=== PATIENT | female | born 1965 | race Caucasian/White ===

== ENCOUNTER 2020-08-18 12:46 | Outpatient (CLI) | payer OTHER | END 2020-08-18 12:47 | disposition home or self-care (01) | LOC: CSHMAMMO 12:46 | PROVIDERS: ATTEND Nurse Practitioner Adult Health | DX: Z12.31 Encounter for screening mammogram for malignant neoplasm of breast (principal) | CPT/HCPCS: 77067 ==

== ENCOUNTER 2021-10-08 10:05 | Outpatient (CLI) | payer OTHER | END 2021-10-08 10:06 | disposition home or self-care (01) | LOC: CSHMAMMO 10:05 | PROVIDERS: ATTEND Family Medicine | DX: Z12.31 Encounter for screening mammogram for malignant neoplasm of breast (principal) | CPT/HCPCS: 77067 ==

== ENCOUNTER 2022-03-27 16:11 | Inpatient (IN) | payer OTHER ==
[2022-03-27] MEDS ORDERED: Ondansetron ODT 4 MG TAB PO PRN (17:06)
[2022-03-27] MEDS ORDERED: Ondansetron PF 4 MG/2 ML Vial IVP PRN (17:06)
[2022-03-27] MEDS ORDERED: Acetaminophen 650 MG Suppository PR PRN (17:06)
[2022-03-27] MEDS ORDERED: Bisacodyl 5 MG TAB PO PRN (17:06)
[2022-03-27] MEDS ORDERED: Senokot S 8.6-50 MG TAB PO PRN (17:06)
[2022-03-27] MEDS ORDERED: Acetaminophen 325 MG TAB PO PRN (17:06)
[2022-03-27 17:10] VITALS: BMI 21.9
[2022-03-27] MEDS ORDERED: FLU VACC QS2022-23(6MOS UP)/PF 60 MCG/0.5 ML SYRINGE IM ONE (17:30)
[2022-03-27] MEDS ORDERED: Enoxaparin Sodium 40 MG/0.4 ML SYRINGE SC SCH (17:45)
[2022-03-27] MEDS ORDERED: Mometasone/Formoterol 60 PUFF AER INH SCH (18:30)
[2022-03-27] MEDS: Nicotine 14 MG PATCH TD SCH (18:40)
[2022-03-27 20:04] LABS: Magnesium 2.1 mg/dL (1.6-2.6); Phosphorus 2.2 mg/dL (2.3-4.7)
[2022-03-27 20:24] LABS: HIV (1/2) Antibody/Antigen Non-Reactive (NonReactive); HIV 1/2 INDEX 0.23 S/CO (<1.00)
[2022-03-27] MEDS: Famotidine 20 MG TAB PO SCH (21:44)
[2022-03-27] MEDS: Mometasone/Formoterol 200/5 60 PUFF INH SCH (23:24)
[2022-03-28 05:21] LABS: #Monocytes 0.4 10x3/uL (0.0-1.1); %Basophils 0.1 % (0.0-2.0); %Lymphocytes 6.8 % (18.0-47.0); %Neutrophils 88.5 % (40.0-75.0); Hemoglobin 12.4 g/dL (12.0-15.5); Mean Corpuscular HGB CONC 31.1 g/dL (32.0-36.0); Mean Corpuscular Hemoglobin 26.4 pg (27.0-33.0); Mean Corpuscular Volume 84.9 fl (81.6-98.3); Mean Platelet Volume 9.7 fl (7.4-10.4); Platelet Count 258 10x3/uL (150-450); White Blood Cell (WBC) Count 10.2 10x3/uL (3.5-10.5)
[2022-03-28 07:32] LABS: Bilirubin Neg (Negative); Blood, Urine Negative (Negative); Clarity Clear (Clear); Glucose, Urine (Dipstick) 50 mg/dL (Negative); Ketone, Urine Negative (Negative); Leukocyte 25 (Negative); Nitrite Negative (Negative); Protein, Urine (Dipstick) Negative (Neg-Trace); Urobilinogen Normal mg/dL (Less than 2)
[2022-03-28 07:54] LABS: Legionella Urinary Ag Negative (Negative); Strep pneumo Urine Ag NEGATIVE (NEGATIVE)
[2022-03-28 08:05] LABS: Bacteria/HPF 1+ HPF (None Seen); Mucous/LPF 1+ LPF (<2+); RBC/HPF 0-3 HPF (0-3); WBC/HPF 0-3 HPF (0-3)
[2022-03-28] MEDS: Mometasone/Formoterol 200/5 60 PUFF INH SCH ×2 (08:05→18:55)
[2022-03-28] MEDS: Enoxaparin Sodium 40 MG/0.4 ML SYRINGE SC SCH (08:30)
[2022-03-28] MEDS: predniSONE 20 MG TAB PO SCH (08:30)
[2022-03-28] MEDS: Famotidine 20 MG TAB PO SCH ×2 (08:30→21:17)
[2022-03-28] MEDS ORDERED: cefTRIAXone\\ROCEPHIN 1 GM in Sodium Chloride 0.9% 100 ML IVPB SCH (14:00)
[2022-03-28] MEDS: Nicotine 14 MG PATCH TD SCH (17:16)
[2022-03-29 05:36] LABS: Hemoglobin 11.2 g/dL (12.0-15.5); Mean Corpuscular HGB CONC 30.9 g/dL (32.0-36.0); Mean Corpuscular Hemoglobin 26.5 pg (27.0-33.0); Mean Corpuscular Volume 85.6 fl (81.6-98.3); Mean Platelet Volume 9.6 fl (7.4-10.4); Platelet Count 290 10x3/uL (150-450); RBC Distribution Width 13.9 % (11.5-14.5); Red Blood Cell (RBC) Count 4.23 10x6/uL (3.90-5.03); White Blood Cell (WBC) Count 8.7 10x3/uL (3.5-10.5)
[2022-03-29 05:42] LABS: Anion Gap 10 mmol/L (10-20); BUN (Urea Nitrogen) 15 mg/dL (9.8-20.1); Calc. Creatinine Clearance 102 mL/min (70-130); Calcium 8.6 mg/dL (7.8-10.44); Carbon Dioxide 30 mmol/L (22-29); Chloride 106 mmol/L (98-107); Estimated GFR 110; Glucose 127 mg/dL (70-105); Potassium 4.3 mmol/L (3.5-5.1); Sodium 142 mmol/L (136-145)
[2022-03-29 06:15] LABS: MDiff Complete? YES; Platelet Morphology Comment Appears Adequate
[2022-03-29 06:17] LABS: Band 5 % (5-11); Lymphocytes 5 % (21-51); Metamyelocyte 1 % (0-0); Monocytes 7 % (0-10); Neutrophil 81 % (42-75); Reactive Lymphocytes 1 % (0-10)
[2022-03-29] MEDS: Mometasone/Formoterol 200/5 60 PUFF INH SCH (07:25)
[2022-03-29] MEDS: Famotidine 20 MG TAB PO SCH (08:47)
[2022-03-29] MEDS: predniSONE 20 MG TAB PO SCH (08:48)
[2022-03-29] MEDS: Enoxaparin Sodium 40 MG/0.4 ML SYRINGE SC SCH (08:49)
[2022-03-29 10:18] VITALS: BP 131/73; TEMP 98.2
== END 2022-03-29 10:17 | disposition home or self-care (01) | DRG 871 ==
LOC: CSHTELE 16:11
PROVIDERS: ADMIT Family Medicine; ATTEND Family Medicine
DX: A41.9 Sepsis, unspecified organism (principal); J18.9 Pneumonia, unspecified organism; J96.01 Acute respiratory failure with hypoxia; J44.1 Chronic obstructive pulmonary disease with (acute) exacerbation; J44.0 Chronic obstructive pulmonary disease with (acute) lower respiratory infection; R65.20 Severe sepsis without septic shock; M06.9 Rheumatoid arthritis, unspecified; B18.2 Chronic viral hepatitis C; F17.210 Nicotine dependence, cigarettes, uncomplicated; Z79.899 Other long term (current) drug therapy; Z79.52 Long term (current) use of systemic steroids; Z91.013 Allergy to seafood; Z80.1 Family history of malignant neoplasm of trachea, bronchus and lung
CPT/HCPCS: 36415; 80048; 81001; 83735; 84100; 85025; 87070; 87205; 87389; 87449; 87633; 87899; 94640; 94664; 94760; J0696; J1650; J1956; J3490; J7512; J7620

== ENCOUNTER 2022-04-17 09:12 | Inpatient (IN) | payer OTHER ==
[2022-04-17 09:49] LABS: ALV-art Gradient 496.875 mmHg (0-20); Actual Bicarbonate (HCO3a) 28.9 mEq/L (22-28); CO2 Tension 69.3 mmHg (35.0-45.0); Calcium, Ionized (arterial) 1.17 mmol/L (1.12-1.30); Carboxyhemoglobin (COHb) 0.5 gm% (0.0-3.0); Hemoglobin (Hb) 12.4 g/dL (12.0-16.0); O2 Tension (PaO2), arterial 129.5 mmHg (80.0-100.0); Potassium - ABG Lab 3.6 mmol/L (3.70-5.30); Puncture Site RRA; pH, Arterial 7.24 (7.35-7.45)
[2022-04-17] MEDS ORDERED: Senokot S 8.6-50 MG TAB PO PRN (10:13)
[2022-04-17] MEDS ORDERED: Ondansetron PF 4 MG/2 ML Vial IVP PRN (10:13)
[2022-04-17] MEDS ORDERED: Calcium Carbonate 500 MG ChewTAB PO PRN (10:13)
[2022-04-17] MEDS ORDERED: Acetaminophen 650 MG Suppository PR PRN (10:16)
[2022-04-17] MEDS ORDERED: Benzonatate 100 MG CAP PO PRN (10:16)
[2022-04-17] MEDS ORDERED: Acetaminophen 325 MG TAB PO PRN (10:16)
[2022-04-17] MEDS ORDERED: REMDESIVIR 200 MG in Sodium Chloride 0.9% 250 ML 210 ML IV SCH (10:30)
[2022-04-17] MEDS ORDERED: Sodium Chloride 0.9% 1,000 ML IV SCH (10:30)
[2022-04-17] MEDS ORDERED: Ventolin HFA Inhaler 60 PUFF INHALER INH PRN (10:32)
[2022-04-17] MEDS ORDERED: Dexamethasone 20 MG/5 ML VIAL SLOW IVP SCH (10:45)
[2022-04-17] MEDS: Nicotine 21 MG PATCH TD SCH (11:00)
[2022-04-17] MEDS: cefTRIAXone\\ROCEPHIN 1 GM in Sodium Chloride 0.9% 100 ML IVPB SCH (11:00)
[2022-04-17 11:18] LABS: ALT (SGPT) 19 U/L (8-55); AST (SGOT) 30 U/L (5-34); Albumin 3.5 g/dL (3.5-5.0); Alkaline Phosphatase 76 U/L (40-110); Bilirubin, Direct 0.2 mg/dL (0.1-0.3); Bilirubin, Total 0.3 mg/dL (0.2-1.2); Protein, Total 6.5 g/dL (6.0-8.3)
[2022-04-17] MEDS: Famotidine 20 MG TAB PO SCH (20:17)
[2022-04-17] MEDS: Doxycycline 100 MG in Sodium Chloride 0.9% 100 ML IVPB SCH (20:17)
[2022-04-17] MEDS: Dexamethasone 20 MG/5 ML VIAL SLOW IVP SCH (20:17)
[2022-04-18] MEDS ORDERED: Ventolin HFA Inhaler 60 PUFF INHALER ONE (00:29)
[2022-04-18] MEDS: Acetaminophen 325 MG TAB PO PRN ×3 (03:04→16:53)
[2022-04-18 04:07] LABS: Anion Gap 13 mmol/L (10-20); BUN (Urea Nitrogen) 15 mg/dL (9.8-20.1); Calc. Creatinine Clearance 0 mL/min (70-130); Calcium 8.7 mg/dL (7.8-10.44); Carbon Dioxide 22 mmol/L (22-29); Chloride 104 mmol/L (98-107); Estimated GFR 110; Glucose 138 mg/dL (70-105); Potassium 4.8 mmol/L (3.5-5.1); Sodium 134 mmol/L (136-145)
[2022-04-18 04:17] LABS: #Monocytes 0.3 10x3/uL (0.0-1.1); #Neutrophils 5.6 10x3/uL (1.5-8.4); %Lymphocytes 7.8 % (18.0-47.0); %Monocytes 4.4 % (0.0-10.0); %Neutrophils 87.3 % (40.0-75.0); Hemoglobin 11.9 g/dL (12.0-15.5); Mean Corpuscular HGB CONC 30.4 g/dL (32.0-36.0); Mean Corpuscular Hemoglobin 26.2 pg (27.0-33.0); Mean Corpuscular Volume 86.2 fl (81.6-98.3); Mean Platelet Volume 10.8 fl (7.4-10.4); Platelet Count 119 10x3/uL (150-450); RBC Distribution Width 15.2 % (11.5-14.5); Red Blood Cell (RBC) Count 4.55 10x6/uL (3.90-5.03); White Blood Cell (WBC) Count 6.4 10x3/uL (3.5-10.5)
[2022-04-18 04:19] LABS: Basophilic Stippling SLIGHT = 1-2 cells (100X) (None Seen); Platelet Morphology Comment Appears Decreased
[2022-04-18] MEDS: Dexamethasone 20 MG/5 ML VIAL SLOW IVP SCH ×2 (08:14→21:07)
[2022-04-18] MEDS: Cholecalciferol (Vitamin D3) 400 UNITS TAB PO SCH (08:14)
[2022-04-18] MEDS: Zinc Sulfate 220 MG CAP PO SCH (08:14)
[2022-04-18] MEDS: Enoxaparin Sodium 40 MG/0.4 ML SYRINGE SC SCH (08:14)
[2022-04-18] MEDS: Ascorbic Acid 500 mg Chewable Tablet PO SCH (08:15)
[2022-04-18] MEDS: Famotidine 20 MG TAB PO SCH ×2 (08:15→21:08)
[2022-04-18] MEDS: Doxycycline 100 MG in Sodium Chloride 0.9% 100 ML IVPB SCH ×2 (08:18→21:07)
[2022-04-18] MEDS: Oseltamivir 75 MG CAP PO SCH (09:32)
[2022-04-18] MEDS ORDERED: Iopamidol 300 61% 100 ML VIAL FS ONE (10:00)
[2022-04-18] MEDS ORDERED: REMDESIVIR 100 MG in Sodium Chloride 0.9% 250 ML 230 ML IV SCH (10:30)
[2022-04-18] MEDS: Nicotine 21 MG PATCH TD SCH (10:37)
[2022-04-18] MEDS: cefTRIAXone\\ROCEPHIN 1 GM in Sodium Chloride 0.9% 100 ML IVPB SCH (10:37)
[2022-04-18] MEDS: BARICITINIB 2 MG TAB PO SCH (12:56)
[2022-04-18] MEDS: Albuterol Sulfate 2.5 mg/3 ml Neb NEB PRN (18:57)
[2022-04-19] MEDS: Albuterol Sulfate 2.5 mg/3 ml Neb NEB PRN (00:07)
[2022-04-19 04:04] LABS: #Monocytes 0.2 10x3/uL (0.0-1.1); #Neutrophils 4.5 10x3/uL (1.5-8.4); %Basophils 0.2 % (0.0-2.0); %Lymphocytes 10.6 % (18.0-47.0); %Monocytes 3.2 % (0.0-10.0); %Neutrophils 85.1 % (40.0-75.0); Mean Corpuscular HGB CONC 30.2 g/dL (32.0-36.0); Mean Corpuscular Hemoglobin 26.6 pg (27.0-33.0); Mean Corpuscular Volume 87.9 fl (81.6-98.3); Mean Platelet Volume 10.4 fl (7.4-10.4); Platelet Count 171 10x3/uL (150-450); RBC Distribution Width 14.7 % (11.5-14.5); Red Blood Cell (RBC) Count 4.14 10x6/uL (3.90-5.03); White Blood Cell (WBC) Count 5.3 10x3/uL (3.5-10.5)
[2022-04-19 04:26] LABS: CRP (Inflammatory) 5.84 mg/dL (= or < 0.5); Magnesium 2.1 mg/dL (1.6-2.6)
[2022-04-19 04:27] LABS: Anion Gap 7 mmol/L (10-20); BUN (Urea Nitrogen) 18 mg/dL (9.8-20.1); Calc. Creatinine Clearance 0 mL/min (70-130); Carbon Dioxide 34 mmol/L (22-29); Chloride 97 mmol/L (98-107); Estimated GFR 109; Glucose 158 mg/dL (70-105); Phosphorus 1.8 mg/dL (2.3-4.7); Potassium 4.1 mmol/L (3.5-5.1); Sodium 134 mmol/L (136-145)
[2022-04-19] MEDS: cefTRIAXone\\ROCEPHIN 1 GM in Sodium Chloride 0.9% 100 ML IVPB SCH (07:53)
[2022-04-19] MEDS: Oseltamivir 75 MG CAP PO SCH (07:54)
[2022-04-19] MEDS: Enoxaparin Sodium 40 MG/0.4 ML SYRINGE SC SCH (07:54)
[2022-04-19] MEDS: Nicotine 21 MG PATCH TD SCH (07:55)
[2022-04-19] MEDS: Doxycycline 100 MG in Sodium Chloride 0.9% 100 ML IVPB SCH ×2 (07:55→21:47)
[2022-04-19] MEDS: Cholecalciferol (Vitamin D3) 400 UNITS TAB PO SCH (07:56)
[2022-04-19] MEDS: Dexamethasone 20 MG/5 ML VIAL SLOW IVP SCH ×2 (07:56→21:47)
[2022-04-19] MEDS: Zinc Sulfate 220 MG CAP PO SCH (07:56)
[2022-04-19] MEDS: Famotidine 20 MG TAB PO SCH (07:56)
[2022-04-19] MEDS: Ascorbic Acid 500 mg Chewable Tablet PO SCH (07:56)
[2022-04-19] MEDS: BARICITINIB 2 MG TAB PO SCH (12:24)
[2022-04-19] MEDS: PHOS-NAK 1 PKT PACK PO SCH ×2 (15:23→21:47)
[2022-04-19] MEDS: Famotidine/PF 20 mg/2ml Vial SLOW IVP SCH (21:47)
[2022-04-19] MEDS: Acetaminophen 325 MG TAB PO PRN (23:11)
[2022-04-20] MEDS: HYDROcodone/Acetaminophen 5/325 mg Tablet PO PRN ×3 (03:22→22:48)
[2022-04-20 04:10] LABS: #Monocytes 0.4 10x3/uL (0.0-1.1); #Neutrophils 4.5 10x3/uL (1.5-8.4); %Basophils 0.2 % (0.0-2.0); %Lymphocytes 10.1 % (18.0-47.0); %Monocytes 6.5 % (0.0-10.0); %Neutrophils 81.4 % (40.0-75.0); Hemoglobin 10.5 g/dL (12.0-15.5); Mean Corpuscular HGB CONC 29.6 g/dL (32.0-36.0); Mean Corpuscular Hemoglobin 26.2 pg (27.0-33.0); Mean Corpuscular Volume 88.5 fl (81.6-98.3); Mean Platelet Volume 10.2 fl (7.4-10.4); Platelet Count 155 10x3/uL (150-450); RBC Distribution Width 14.6 % (11.5-14.5); Red Blood Cell (RBC) Count 4.01 10x6/uL (3.90-5.03); White Blood Cell (WBC) Count 5.6 10x3/uL (3.5-10.5)
[2022-04-20 04:13] LABS: ALT (SGPT) 13 U/L (8-55); AST (SGOT) 18 U/L (5-34); Albumin 3.1 g/dL (3.5-5.0); Alkaline Phosphatase 52 U/L (40-110); BUN (Urea Nitrogen) 22 mg/dL (9.8-20.1); Bilirubin, Total 0.2 mg/dL (0.2-1.2); CRP (Inflammatory) 2.29 mg/dL (= or < 0.5); Calc. Creatinine Clearance 121 mL/min (70-130); Calcium 8.9 mg/dL (7.8-10.44); Estimated GFR 110; Globulin 2.6 g/dL (2.4-3.5); Glucose 129 mg/dL (70-105); Protein, Total 5.7 g/dL (6.0-8.3)
[2022-04-20 04:20] LABS: Anion Gap 12 mmol/L (10-20); Carbon Dioxide 36 mmol/L (22-29); Chloride 95 mmol/L (98-107); Potassium 4.7 mmol/L (3.5-5.1); Sodium 138 mmol/L (136-145)
[2022-04-20 04:27] LABS: Hypochromia SLIGHT = 6-15 cells (100X) (0-5/hpf); Platelet Morphology Comment Appears Adequate
[2022-04-20] MEDS: Enoxaparin Sodium 40 MG/0.4 ML SYRINGE SC SCH (10:11)
[2022-04-20] MEDS: Oseltamivir 75 MG CAP PO SCH (10:12)
[2022-04-20] MEDS: Ascorbic Acid 500 mg Chewable Tablet PO SCH (10:12)
[2022-04-20] MEDS: Dexamethasone 20 MG/5 ML VIAL SLOW IVP SCH ×2 (10:12→20:51)
[2022-04-20] MEDS: Cholecalciferol (Vitamin D3) 400 UNITS TAB PO SCH (10:12)
[2022-04-20] MEDS: Famotidine/PF 20 mg/2ml Vial SLOW IVP SCH ×2 (10:12→20:52)
[2022-04-20] MEDS: Zinc Sulfate 220 MG CAP PO SCH (10:12)
[2022-04-20] MEDS: PHOS-NAK 1 PKT PACK PO SCH (10:12)
[2022-04-20] MEDS: Doxycycline 100 MG in Sodium Chloride 0.9% 100 ML IVPB SCH ×2 (10:13→20:51)
[2022-04-20] MEDS: Acetaminophen 325 MG TAB PO PRN (10:19)
[2022-04-20] MEDS: cefTRIAXone\\ROCEPHIN 1 GM in Sodium Chloride 0.9% 100 ML IVPB SCH (10:20)
[2022-04-20] MEDS ORDERED: Furosemide 20 MG/2 ML VIAL SLOW IVP SCH (10:45)
[2022-04-20] MEDS: Nicotine 21 MG PATCH TD SCH (11:56)
[2022-04-20] MEDS: BARICITINIB 2 MG TAB PO SCH (13:53)
[2022-04-21 04:38] LABS: #Monocytes 0.3 10x3/uL (0.0-1.1); #Neutrophils 4.3 10x3/uL (1.5-8.4); %Basophils 0.2 % (0.0-2.0); %Lymphocytes 9.7 % (18.0-47.0); %Monocytes 6.3 % (0.0-10.0); Hemoglobin 10.5 g/dL (12.0-15.5); Mean Corpuscular HGB CONC 30.3 g/dL (32.0-36.0); Mean Corpuscular Hemoglobin 26.6 pg (27.0-33.0); Mean Corpuscular Volume 87.8 fl (81.6-98.3); Mean Platelet Volume 10.2 fl (7.4-10.4); Platelet Count 162 10x3/uL (150-450); RBC Distribution Width 14.5 % (11.5-14.5); Red Blood Cell (RBC) Count 3.95 10x6/uL (3.90-5.03); White Blood Cell (WBC) Count 5.3 10x3/uL (3.5-10.5)
[2022-04-21 05:22] LABS: ALT (SGPT) 10 U/L (8-55); AST (SGOT) 18 U/L (5-34); Albumin 3.1 g/dL (3.5-5.0); Alkaline Phosphatase 49 U/L (40-110); BUN (Urea Nitrogen) 19 mg/dL (9.8-20.1); Bilirubin, Total 0.2 mg/dL (0.2-1.2); Calc. Creatinine Clearance 121 mL/min (70-130); Calcium 9.1 mg/dL (7.8-10.44); Estimated GFR 111; Globulin 2.5 g/dL (2.4-3.5); Glucose 126 mg/dL (70-105); Protein, Total 5.6 g/dL (6.0-8.3)
[2022-04-21 05:30] LABS: Anion Gap 15 mmol/L (10-20); Carbon Dioxide 37 mmol/L (22-29); Chloride 92 mmol/L (98-107); Potassium 4.4 mmol/L (3.5-5.1); Sodium 140 mmol/L (136-145)
[2022-04-21 06:15] VITALS: BMI 25.2
[2022-04-21] MEDS: Doxycycline 100 MG in Sodium Chloride 0.9% 100 ML IVPB SCH ×2 (07:53→21:36)
[2022-04-21] MEDS: Dexamethasone 20 MG/5 ML VIAL SLOW IVP SCH ×2 (07:56→21:38)
[2022-04-21] MEDS: Enoxaparin Sodium 40 MG/0.4 ML SYRINGE SC SCH (07:56)
[2022-04-21] MEDS: Famotidine/PF 20 mg/2ml Vial SLOW IVP SCH ×2 (07:56→21:35)
[2022-04-21] MEDS: Oseltamivir 75 MG CAP PO SCH (07:57)
[2022-04-21] MEDS: Ascorbic Acid 500 mg Chewable Tablet PO SCH (07:57)
[2022-04-21] MEDS: Cholecalciferol (Vitamin D3) 400 UNITS TAB PO SCH (07:57)
[2022-04-21] MEDS: Zinc Sulfate 220 MG CAP PO SCH (07:57)
[2022-04-21] MEDS: Albuterol Sulfate 2.5 mg/3 ml Neb NEB PRN ×2 (08:29→09:45)
[2022-04-21] MEDS: cefTRIAXone\\ROCEPHIN 1 GM in Sodium Chloride 0.9% 100 ML IVPB SCH (11:18)
[2022-04-21] MEDS: Nicotine 21 MG PATCH TD SCH (11:18)
[2022-04-21] MEDS: BARICITINIB 2 MG TAB PO SCH (13:08)
[2022-04-22 06:56] LABS: Hemoglobin 11.9 g/dL (12.0-15.5); Mean Corpuscular HGB CONC 31.3 g/dL (32.0-36.0); Mean Corpuscular Hemoglobin 26.3 pg (27.0-33.0); Mean Corpuscular Volume 83.9 fl (81.6-98.3); Mean Platelet Volume 10.2 fl (7.4-10.4); Platelet Count 206 10x3/uL (150-450); RBC Distribution Width 14.6 % (11.5-14.5); Red Blood Cell (RBC) Count 4.53 10x6/uL (3.90-5.03); White Blood Cell (WBC) Count 7.5 10x3/uL (3.5-10.5)
[2022-04-22 07:01] LABS: ALT (SGPT) 12 U/L (8-55); AST (SGOT) 17 U/L (5-34); Albumin 3.5 g/dL (3.5-5.0); Alkaline Phosphatase 56 U/L (40-110); Anion Gap 12 mmol/L (10-20); BUN (Urea Nitrogen) 20 mg/dL (9.8-20.1); Bilirubin, Total 0.3 mg/dL (0.2-1.2); Calc. Creatinine Clearance 120 mL/min (70-130); Calcium 9.3 mg/dL (7.8-10.44); Carbon Dioxide 35 mmol/L (22-29); Chloride 98 mmol/L (98-107); Estimated GFR 110; Globulin 2.8 g/dL (2.4-3.5); Glucose 111 mg/dL (70-105); Potassium 4.1 mmol/L (3.5-5.1); Protein, Total 6.3 g/dL (6.0-8.3); Sodium 141 mmol/L (136-145)
[2022-04-22 08:15] LABS: MDiff Complete? YES
[2022-04-22 09:02] LABS: Band 6 % (5-11); Lymphocytes 9 % (21-51); Metamyelocyte 2 % (0-0); Monocytes 1 % (0-10); Neutrophil 82 % (42-75)
[2022-04-22 09:03] LABS: Platelet Morphology Comment Appears Adequate
[2022-04-22] MEDS: Dexamethasone 20 MG/5 ML VIAL SLOW IVP SCH (10:55)
[2022-04-22] MEDS: Ascorbic Acid 500 mg Chewable Tablet PO SCH (10:55)
[2022-04-22] MEDS: Famotidine/PF 20 mg/2ml Vial SLOW IVP SCH ×2 (10:55→20:54)
[2022-04-22] MEDS: Zinc Sulfate 220 MG CAP PO SCH (10:56)
[2022-04-22] MEDS: BARICITINIB 2 MG TAB PO SCH (10:56)
[2022-04-22] MEDS: Cholecalciferol (Vitamin D3) 400 UNITS TAB PO SCH (10:56)
[2022-04-22] MEDS: Doxycycline 100 MG in Sodium Chloride 0.9% 100 ML IVPB SCH ×2 (10:56→20:53)
[2022-04-22] MEDS: Enoxaparin Sodium 40 MG/0.4 ML SYRINGE SC SCH (10:57)
[2022-04-22] MEDS: cefTRIAXone\\ROCEPHIN 1 GM in Sodium Chloride 0.9% 100 ML IVPB SCH (16:21)
[2022-04-22] MEDS: Nicotine 21 MG PATCH TD SCH (16:21)
[2022-04-22] MEDS: Dexamethasone 4 mg/ml Vial SLOW IVP SCH (20:54)
[2022-04-23] MEDS: Nicotine 21 MG PATCH TD SCH (09:39)
[2022-04-23] MEDS: Enoxaparin Sodium 40 MG/0.4 ML SYRINGE SC SCH (09:41)
[2022-04-23] MEDS: Doxycycline 100 MG in Sodium Chloride 0.9% 100 ML IVPB SCH ×2 (09:45→21:40)
[2022-04-23] MEDS: Famotidine/PF 20 mg/2ml Vial SLOW IVP SCH (09:46)
[2022-04-23] MEDS: Dexamethasone 4 mg/ml Vial SLOW IVP SCH ×2 (09:47→21:40)
[2022-04-23] MEDS: Zinc Sulfate 220 MG CAP PO SCH (09:52)
[2022-04-23] MEDS: Cholecalciferol (Vitamin D3) 400 UNITS TAB PO SCH (09:52)
[2022-04-23] MEDS: Ascorbic Acid 500 mg Chewable Tablet PO SCH (09:52)
[2022-04-23] MEDS: cefTRIAXone\\ROCEPHIN 1 GM in Sodium Chloride 0.9% 100 ML IVPB SCH (10:32)
[2022-04-23] MEDS: BARICITINIB 2 MG TAB PO SCH (10:32)
[2022-04-23] MEDS: Famotidine 20 MG TAB PO SCH (21:40)
[2022-04-24] MEDS: Albuterol 200 PUFF (6.7GM INHALER) INH PRN ×2 (07:00→13:45)
[2022-04-24] MEDS: Doxycycline 100 MG in Sodium Chloride 0.9% 100 ML IVPB SCH ×2 (09:22→21:41)
[2022-04-24] MEDS: Ascorbic Acid 500 mg Chewable Tablet PO SCH (09:24)
[2022-04-24] MEDS: Enoxaparin Sodium 40 MG/0.4 ML SYRINGE SC SCH (09:24)
[2022-04-24] MEDS: Cholecalciferol (Vitamin D3) 400 UNITS TAB PO SCH (09:24)
[2022-04-24] MEDS: Acetaminophen 325 MG TAB PO PRN (09:24)
[2022-04-24] MEDS: Nicotine 21 MG PATCH TD SCH (09:25)
[2022-04-24] MEDS: Famotidine 20 MG TAB PO SCH ×2 (09:25→21:44)
[2022-04-24] MEDS: Zinc Sulfate 220 MG CAP PO SCH (09:25)
[2022-04-24] MEDS: Dexamethasone 4 mg/ml Vial SLOW IVP SCH ×2 (09:26→21:40)
[2022-04-24] MEDS: cefTRIAXone\\ROCEPHIN 1 GM in Sodium Chloride 0.9% 100 ML IVPB SCH (12:37)
[2022-04-24] MEDS: BARICITINIB 2 MG TAB PO SCH (12:37)
[2022-04-24 13:12] LABS: Hemoglobin 13.2 g/dL (12.0-15.5); Mean Corpuscular HGB CONC 32.3 g/dL (32.0-36.0); Mean Corpuscular Hemoglobin 26.3 pg (27.0-33.0); Mean Corpuscular Volume 81.5 fl (81.6-98.3); Mean Platelet Volume 9.8 fl (7.4-10.4); Platelet Count 365 10x3/uL (150-450); RBC Distribution Width 15.4 % (11.5-14.5); Red Blood Cell (RBC) Count 5.02 10x6/uL (3.90-5.03); White Blood Cell (WBC) Count 11.7 10x3/uL (3.5-10.5)
[2022-04-24 13:37] LABS: Band 8 % (5-11); Lymphocytes 7 % (21-51); Metamyelocyte 4 % (0-0); Monocytes 5 % (0-10); Myelocyte 9 % (0-0); Reactive Lymphocytes 4 % (0-10)
[2022-04-24 13:40] LABS: Anisocytosis SLIGHT = 6-15 cells (100X) (0-5/hpf); Large Platelets SLIGHT; Microcytosis SLIGHT = 6-15 cells (100X) (0-5/hpf); Neutrophil 63 % (42-75); Platelet Morphology Comment Appears Adequate; Toxic Granulation MODERATE
[2022-04-24 13:42] LABS: MDiff Complete? YES
[2022-04-25] MEDS: Albuterol 200 PUFF (6.7GM INHALER) INH PRN (07:20)
[2022-04-25] MEDS: Cholecalciferol (Vitamin D3) 400 UNITS TAB PO SCH (08:30)
[2022-04-25] MEDS: Ascorbic Acid 500 mg Chewable Tablet PO SCH (08:30)
[2022-04-25] MEDS: Enoxaparin Sodium 40 MG/0.4 ML SYRINGE SC SCH (08:30)
[2022-04-25] MEDS: Zinc Sulfate 220 MG CAP PO SCH (08:30)
[2022-04-25] MEDS: Famotidine 20 MG TAB PO SCH ×2 (08:30→20:50)
[2022-04-25] MEDS: Dexamethasone 4 mg/ml Vial SLOW IVP SCH (08:31)
[2022-04-25] MEDS ORDERED: Ondansetron ODT 4 MG TAB PO PRN (10:33)
[2022-04-25] MEDS: Nicotine 21 MG PATCH TD SCH (10:46)
[2022-04-25] MEDS: BARICITINIB 2 MG TAB PO SCH (11:16)
[2022-04-25 14:10] LABS: Anion Gap 13 mmol/L (10-20); BUN (Urea Nitrogen) 31 mg/dL (9.8-20.1); Calc. Creatinine Clearance 108 mL/min (70-130); Calcium 9.3 mg/dL (7.8-10.44); Carbon Dioxide 26 mmol/L (22-29); Chloride 104 mmol/L (98-107); Estimated GFR 108; Glucose 166 mg/dL (70-105); Potassium 4.5 mmol/L (3.5-5.1); Sodium 138 mmol/L (136-145)
[2022-04-26] MEDS ORDERED: Dexamethasone 4 MG TAB PO SCH ×2 (08:00→09:00)
[2022-04-26] MEDS ORDERED: Dexamethasone 4 mg/ml Vial SLOW IVP SCH (09:00)
[2022-04-26] MEDS: Ascorbic Acid 500 mg Chewable Tablet PO SCH (09:42)
[2022-04-26] MEDS: Zinc Sulfate 220 MG CAP PO SCH (09:42)
[2022-04-26] MEDS: Famotidine 20 MG TAB PO SCH (09:42)
[2022-04-26] MEDS: Enoxaparin Sodium 40 MG/0.4 ML SYRINGE SC SCH (09:42)
[2022-04-26] MEDS: Cholecalciferol (Vitamin D3) 400 UNITS TAB PO SCH (09:43)
[2022-04-26] MEDS: BARICITINIB 2 MG TAB PO SCH (11:08)
[2022-04-26] MEDS: Nicotine 21 MG PATCH TD SCH (11:08)
[2022-04-26 16:14] VITALS: BP 94/50; TEMP 98
[2022-04-28] MEDS ORDERED: predniSONE 10 MG TAB PO SCH (09:00)
[2022-04-29] MEDS ORDERED: Dexamethasone 4 MG TAB PO SCH (08:00)
[2022-05-02] MEDS ORDERED: Dexamethasone 1 MG TAB PO SCH (08:00)
[2022-05-05] MEDS ORDERED: Dexamethasone 1 MG TAB PO SCH (08:00)
== END 2022-04-26 17:12 | disposition home or self-care (01) | DRG 871 ==
LOC: CSHERS 09:12 → CSHICU 10:10 → CSHTELE 04-21 20:01
PROVIDERS: ADMIT Family Medicine; ATTEND Family Medicine
PROC: XW033E5 Introduction of Remdesivir Anti-infective into Peripheral Vein, Percutaneous Approach, New Technology Group 5 (ICD-10-PCS; principal; 2022-04-17)
PROC: 3E0333Z Introduction of Anti-inflammatory into Peripheral Vein, Percutaneous Approach (ICD-10-PCS; 2022-04-17)
PROC: 5A09457 Assistance with Respiratory Ventilation, 24-96 Consecutive Hours, Continuous Positive Airway Pressure (ICD-10-PCS; 2022-04-17)
PROC: 8E0ZXY6 Isolation (ICD-10-PCS; 2022-04-17)
PROC: 3E03329 Introduction of Other Anti-infective into Peripheral Vein, Percutaneous Approach (ICD-10-PCS; 2022-04-17)
PROC: XW0DXM6 Introduction of Baricitinib into Mouth and Pharynx, External Approach, New Technology Group 6 (ICD-10-PCS; 2022-04-18)
PROC: 05HM33Z Insertion of Infusion Device into Right Internal Jugular Vein, Percutaneous Approach (ICD-10-PCS; 2022-04-19)
PROC: B543ZZA Ultrasonography of Right Jugular Veins, Guidance (ICD-10-PCS; 2022-04-19)
DX: A41.89 Other specified sepsis (principal); J10.00 Influenza due to other identified influenza virus with unspecified type of pneumonia; J12.82 Pneumonia due to coronavirus disease 2019; J96.01 Acute respiratory failure with hypoxia; J96.02 Acute respiratory failure with hypercapnia; U07.1 COVID-19; J44.1 Chronic obstructive pulmonary disease with (acute) exacerbation; J44.0 Chronic obstructive pulmonary disease with (acute) lower respiratory infection; E87.29 Other acidosis; D84.9 Immunodeficiency, unspecified; R65.20 Severe sepsis without septic shock; M06.9 Rheumatoid arthritis, unspecified; F17.210 Nicotine dependence, cigarettes, uncomplicated; T38.0X5A Adverse effect of glucocorticoids and synthetic analogues, initial encounter; B18.2 Chronic viral hepatitis C; Z98.890 Other specified postprocedural states; Z91.013 Allergy to seafood
CPT/HCPCS: 36415; 36600; 71045; 71260; 80048; 80053; 82805; 83615; 83735; 84100; 84145; 85025; 85652; 86140; 93005; 94640; 94660; 94664; 94760; J0696; J1100; J1650; J1940; J3490; J7050; J7611; J7620; J8540; Q9967; S0028

== ENCOUNTER → 2022-08-29 | Day surgery (SDC) | payer OTHER ==
[~2022-08-29] MED LIST: Lidocaine 1% PF 5 ML VIAL ONE
== END ==
LOC: CSHSDC/OP 14:08
PROVIDERS: ATTEND Internal Medicine Gastroenterology
DX: T18.128A Food in esophagus causing other injury, initial encounter (principal); J44.9 Chronic obstructive pulmonary disease, unspecified; F17.210 Nicotine dependence, cigarettes, uncomplicated; F15.10 Other stimulant abuse, uncomplicated; Z91.013 Allergy to seafood; Z88.2 Allergy status to sulfonamides; Z88.8 Allergy status to other drugs, medicaments and biological substances; R13.10 Dysphagia, unspecified; Z79.899 Other long term (current) drug therapy

== ENCOUNTER 2023-06-02 13:04 | Outpatient (CLI) | payer OTHER | END 2023-06-02 13:05 | disposition home or self-care (01) | LOC: CSHMAMMO 13:04 | PROVIDERS: ATTEND Family Medicine | DX: Z12.31 Encounter for screening mammogram for malignant neoplasm of breast (principal) | CPT/HCPCS: 77067 ==